=== PATIENT | female | born 1985 | race Caucasian/White ===

== ENCOUNTER 2020-05-20 03:41 | Outpatient (CLI) | payer SELFPAY ==
[2020-05-23 20:57] LABS: Patient Race White; SARS-CoV-2 RNA Undetected (Undetected); SARS-CoV-2 Specimen Source Nasal
== END 2020-05-20 04:01 ==
DX: Z11.59 Encounter for screening for other viral diseases (principal); Z20.828 Contact with and (suspected) exposure to other viral communicable diseases
CPT/HCPCS: U0003

== ENCOUNTER 2020-07-17 15:17 | Outpatient (REF) | payer BC, SELFPAY ==
[2020-07-17 15:41] LABS: Bilirubin Negative (Negative); Blood Moderate (Negative); Clarity Sl Cloudy (Clear); Glucose Negative (Negative); Ketones Negative (Negative); Leukocyte Esterase Large (Negative); Nitrite Positive (Negative); Specific Gravity 1.015 (1.005-1.025); Urobilinogen 0.2 EU/dL (Up TO 0.2)
[2020-07-17 15:50] LABS: Bacteria Many HPF (Negative); Casts Negative LPF (Negative); Crystals Negative HPF (Negative); Epithelial Cells Few HPF (Negative); Mucus Negative (Negative); RBC 20-50 HPF (0-2); WBC >50 HPF (0-5)
[2020-07-17 15:51] LABS: C & S Indicated? Yes
== END 2020-07-17 15:37 ==
LOC: LBN 15:17
DX: R30.0 Dysuria (principal)
CPT/HCPCS: 87077; 81003; 81015; 87086; 87186

== ENCOUNTER 2020-07-18 03:25 | Outpatient (CLI) | payer BC, SELFPAY ==
[2020-07-19 16:38] LABS: COVID-19 RT-PCR Result NEGATIVE (Negative)
== END 2020-07-18 03:45 ==
DX: Z20.822 Contact with and (suspected) exposure to COVID-19 (principal)
CPT/HCPCS: U0003

== ENCOUNTER 2020-07-29 03:57 | Outpatient (CLI) | payer BC, SELFPAY ==
[2020-07-29 10:06] LABS: ALT 32 U/L (14-59); AST 16 U/L (15-37); Albumin 4.1 g/dL (3.4-5.0); Alkaline Phosphatase 44 U/L (46-116); Anion Gap 7.2 mmol/L (3-11); BUN 13 mg/dL (7-18); Bilirubin, Total 0.5 mg/dL (0.2-1.0); CO2 27.8 mmol/L (21.0-32.0); CREATININE 0.72 mg/dL (0.55-1.02); Calculated LDL 87 mg/dL (<100); Chloride 104 mmol/L (98-107); Cholesterol 164 mg/dL (<200); Glucose 91 mg/dL (74-106); HDL Cholesterol 71 mg/dL (40-60); Potassium 4.1 mmol/L (3.5-5.1); Sodium 139 mmol/L (136-145); Total Protein 7.2 g/dL (6.4-8.2); Triglyceride 30 mg/dL (<150)
== END 2020-07-29 04:17 ==
DX: Z00.00 Encounter for general adult medical examination without abnormal findings (principal); Z13.220 Encounter for screening for lipoid disorders; Z13.228 Encounter for screening for other metabolic disorders
CPT/HCPCS: 36415; 80053; 80061

== ENCOUNTER 2020-08-06 03:19 | Outpatient (CLI) | payer BC, SELFPAY ==
[2020-08-07 14:04] LABS: COVID-19 RT-PCR UVMMC Result Negative (Negative)
== END 2020-08-06 03:20 | disposition home or self-care (01) ==
DX: Z20.822 Contact with and (suspected) exposure to COVID-19 (principal)
CPT/HCPCS: U0003

== ENCOUNTER 2020-08-19 09:28 | Outpatient (REF) | payer BC, SELFPAY ==
--- NOTE | 2020-08-19 07:20 | PAPFT_PTH ---
PATIENT: Edwin Iglesias LOC: [facility] U#:[id number] AGE/SX: 34/F ROOM: RE08/19/[address]: Xiomy Tyler APRN : 1985 BED: DIS: 08/19/2020 SPEC #: [id number] RECD: 08/19/20 12:42 STATUS: KOREY REJerry #: [id number] KETAN: 08/19/20 07:[address]: Xiomy Tyler DEPT: [facility] Cytology RECD BY: Jeanne Evangelista Tissues: 1 - CX/ENDOCX FOR PAP SMEARS Procedures: PAP THIN PREP/UVM Screening HPV DNA PROBE Comments: [id number] (HPV 16 & 18/45)
== END 2020-08-19 09:29 | disposition home or self-care (01) ==
LOC: LBN 09:28
DX: Z12.4 Encounter for screening for malignant neoplasm of cervix (principal); Z11.51 Encounter for screening for human papillomavirus (HPV); R87.810 Cervical high risk human papillomavirus (HPV) DNA test positive
CPT/HCPCS: 88142; 87624

== ENCOUNTER 2020-12-02 03:07 | Outpatient (CLI) | payer BC, SELFPAY ==
[2020-12-02 18:04] LABS: TSH (W/Ref FT4) 1.12 uIU/mL (0.36-3.74)
== END 2020-12-02 03:08 | disposition home or self-care (01) ==
LOC: LBO 03:07
PROVIDERS: Visit Provider Nurse Practitioner Family
DX: Z31.69 Encounter for other general counseling and advice on procreation (principal); F41.9 Anxiety disorder, unspecified
CPT/HCPCS: 36415; 84443

== ENCOUNTER 2021-06-11 21:23 | Outpatient (REF) | payer BC, SELFPAY | END 2021-06-11 21:24 | disposition home or self-care (01) | LOC: LBN 21:23 | DX: B37.3 Candidiasis of vulva and vagina (principal); N76.0 Acute vaginitis | CPT/HCPCS: 87480; 87510; 87660 ==

== ENCOUNTER 2021-06-22 09:17 | Outpatient (REF) | payer BC, SELFPAY ==
[2021-06-23 13:50] LABS: COVID-19 RT-PCR UVMMC Result Negative (Negative)
== END 2021-06-22 09:18 | disposition home or self-care (01) ==
LOC: LBN 09:17
PROVIDERS: Visit Provider Family Medicine
DX: J02.9 Acute pharyngitis, unspecified (principal); Z20.822 Contact with and (suspected) exposure to COVID-19
CPT/HCPCS: U0003; 87070

== ENCOUNTER 2021-07-07 01:07 | Outpatient (CLI) | payer BC, SELFPAY ==
[2021-07-07] MEDS: Omnipaque 350 MG/ML 50 ML BTL 10 ML IJ (13:53)
--- NOTE | 2021-07-07 13:55 | DI.RAD_ITS ---
Exam(s) RF HYSTEROSALPINGOGRAM EXAM: RF HYSTEROSALPINGOGRAM CLINICAL HISTORY: infertility,n97.9 TECHNIQUE: 2D and realtime digital imaging was performed. CONTRAST MATERIAL: Water soluble contrast was administered. COMPARISON: No exams were available for comparison FINDINGS: Fluoroscopically-guided hysterosalpingogram. The cervical opening was cannulated by fr Hamida the department of obstetric and gynecology. Then under fluoroscopic guidance, water-soluble contr ast was injected in a retrograde fashion. The uterus fills normally, with no evidence of contour abnormality, filling defect, septum, stricture , mass, or bicornuate configuration. The bilateral uterine tubes are normal and patent with normal ra pid spillage of contrast into the peritoneum. IMPRESSION: Normal hysterosalpingogram. RADIATION DOSE DELIVERED: bernice Garland=3.2 mGy
--- NOTE | 2021-07-14 12:49 | W.PROCNOTE ---
Date of service: 07/07/21 Time of Service: 11:00 Procedure Note Date of procedure: 07/07/21 Procedure: Hysterosalpingogram Surgeon/Proceduralist/Physician: Linda Kumar Procedure Diagnosis: Infertility Procedure Indications: Edwin has a history of infertility and recently had a normal sono. Her partner also did a semen analysis that was normal. She opted against bloodwork since she has very regular periods and has tracked ovulation. They are unlikely to pursue assisted reproduction but wanted an evaluation to see if there was a known cause for her infertility. Procedure Description: The patient arrived to diagnostic imaging for HSG for infertility. The procedure was explained and consent was signed. She was positioned in the dorsal lithotomy position on the table. A time out was performed. The speculum was placed in the vagina to expose the cervix. The cervix was cleansed with betadine. The catheter was inserted through the cervix into the uterine cavity. The balloon was inflated. The speculum was then removed. When the radiologist was present the patient was repositioned. The contrast was then injected while the radiologist performed fluoroscopy. The balloon was then deflated and the catheter was removed. The uterine cavity appeared normal and both tubes appeared patent with positive spill noted bilaterally. Her uterus was significantly deviated to her right side. All her questions were answered.
== END 2021-07-07 01:27 ==
PROVIDERS: Visit Provider Obstetrics & Gynecology
DX: N97.9 Female infertility, unspecified (principal); Z87.59 Personal history of other complications of pregnancy, childbirth and the puerperium
CPT/HCPCS: 58340; 74740; Q9967

== ENCOUNTER 2021-07-24 18:33 | Outpatient (REF) | payer BC, SELFPAY | END 2021-07-24 18:34 | disposition home or self-care (01) | LOC: LBN 18:33 | PROVIDERS: Visit Provider Obstetrics & Gynecology | DX: N89.8 Other specified noninflammatory disorders of vagina (principal) | CPT/HCPCS: 87480; 87510; 87660 ==

== ENCOUNTER 2021-09-17 16:07 | Outpatient (REF) | payer BC, SELFPAY ==
--- NOTE | 2021-09-17 15:30 | PAPFT_PTH ---
PATIENT: Edwin Iglesias LOC: [facility] U#:[id number] AGE/SX: 35/F ROOM: RE09/17/[address]: Lnida Kumar MD : 1985 BED: DIS: 09/17/2021 SPEC #: [id number] RECD: 09/17/21 17:26 STATUS: KOREY REJerry #: [id number] KETAN: 09/17/21 15:[address]: Linda Kumar DEPT: [facility] Cytology RECD BY: Jeanne Evangelista ENTERED: 09/17/21 17:27 SP TYPE: PAPFT OTHR DR: Xiomy Tyler APRN Tissues: 1 - CX/ENDOCX FOR PAP SMEARS Procedures: PAP THIN PREP/UVM Screening HPV DNA PROBE Comments: [id number] (CHLAMYDIA/GC)
[2021-09-18 15:15] LABS: Chlamydia Result Negative (Negative); GC Result Negative (Negative)
== END 2021-09-17 16:08 | disposition home or self-care (01) ==
LOC: LBN 16:07
PROVIDERS: Visit Provider Obstetrics & Gynecology
DX: R87.610 Atypical squamous cells of undetermined significance on cytologic smear of cervix (ASC-US) (principal); Z12.4 Encounter for screening for malignant neoplasm of cervix; Z11.51 Encounter for screening for human papillomavirus (HPV); R87.810 Cervical high risk human papillomavirus (HPV) DNA test positive; Z11.3 Encounter for screening for infections with a predominantly sexual mode of transmission
CPT/HCPCS: 87491; 87591; 88142; 87624

== ENCOUNTER 2021-10-08 02:07 | Outpatient (CLI) | payer BC, SELFPAY ==
[2021-10-08 14:32] LABS: Abs Immature Grans 0.01 10^3/uL (0.0-0.06); Absolute Basophil Count 0.03 10^3/uL (0.0-0.2); Absolute Eosinophil Count 0.06 10^3/uL (0.0-0.7); Absolute Lymphocyte Count 1.46 10^3/uL (1.2-3.4); Absolute Monocyte Count 0.37 10^3/uL (0.1-0.8); Absolute Neutrophil Count 5.48 10^3/uL (1.2-6.7); Basophils % 0.4; Eosinophils % 0.8; HCT 41.6 % (36.0-46.0); HGB 13.9 g/dL (11.2-15.7); Immature Grans % 0.1; Lymphocytes % 19.7; MCH 32.6 pg (27.0-33.0); MCHC 33.4 % (32.0-36.0); MCV 97.7 fL (80-95); MPV 10.4 fL (8.0-11.0); Nucleated RBC 0 %; Platelet Count 190 10^3/uL (130-400); RBC 4.26 10^6/uL (3.93-5.22); RDW 11.9 % (11.7-14.6); RDW-SD 42.9 fL; WBC 7.41 10^3/uL (4.4-10.8)
[2021-10-08 15:09] LABS: Hemoglobin A1C 4.7 % (<5.7)
[2021-10-08 16:16] LABS: Iron 94 ug/dL (50-170); Total Iron Binding Capacity 289 ug/dL (250-450)
[2021-10-08 16:26] LABS: Vitamin D 25 Total 30.1 ng/mL (30-100)
[2021-10-08 16:37] LABS: ALT 31 U/L (14-59); AST 21 U/L (15-37); Albumin 4.3 g/dL (3.4-5.0); Alkaline Phosphatase 60 U/L (46-116); Anion Gap 10.2 mmol/L (3-11); BUN 15 mg/dL (7-18); Bilirubin, Total 0.5 mg/dL (0.2-1.0); CO2 26.8 mmol/L (21.0-32.0); CREATININE 0.8 mg/dL (0.55-1.02); Chloride 102 mmol/L (98-107); Ferritin 49 ng/mL (8-252); Folate > 20.0 ng/mL (8.6-20.0); Glucose 82 mg/dL (74-106); Potassium 3.9 mmol/L (3.5-5.1); Sodium 139 mmol/L (136-145); T4 6.5 ug/mL (4.7-13.3); TSH 0.53 uIU/mL (0.36-3.74); Total Protein 7.6 g/dL (6.4-8.2); Vitamin B12 535 pg/mL (193-986)
[2021-10-08 17:02] LABS: FREE T4 1.07 ng/dL (0.76-1.46)
[2021-10-08 21:52] LABS: T3,Free 3.8 pg/mL (2.8-5.3)
[2021-10-08 22:06] LABS: T3, Total 132 ng/dL (97-169)
[2021-10-08 22:45] LABS: Progesterone 11.8 ng/mL (See Table)
[2021-10-08 23:23] LABS: FSH 3.7 mIU/mL (See Note); LH 0.8 mIU/mL (See Note); Thyroglobulin Antibody <15 U/mL (<=60); Thyroperoxidase Antibody <28 U/mL (<=60)
[2021-10-12 17:37] LABS: Estradiol, Mass Spectrometry 110 pg/mL; Estrone 100 pg/mL
== END 2021-10-08 02:08 | disposition home or self-care (01) ==
LOC: LBO 02:07
PROVIDERS: Visit Provider Naturopath
DX: N64.52 Nipple discharge (principal); R53.83 Other fatigue; Z31.9 Encounter for procreative management, unspecified; Z83.3 Family history of diabetes mellitus; E55.9 Vitamin D deficiency, unspecified
CPT/HCPCS: 36415; 80053; 82306; 82607; 82670; 82679; 82728; 82746; 83001; 83002; 83036; 83540; 83550; 84144; 84146; 84436; 84439; 84443; 84480; 84481; 85025; 86376; 86800

== ENCOUNTER 2022-03-25 04:00 | Outpatient (CLI) | payer BC, SELFPAY ==
[2022-03-26 15:03] LABS: Antimullerian Hormone 2.3 ng/mL (0.15-7.5)
== END 2022-03-25 04:01 | disposition home or self-care (01) ==
LOC: LBO 04:00
PROVIDERS: Visit Provider Obstetrics & Gynecology
DX: N97.8 Female infertility of other origin (principal)
CPT/HCPCS: 36415; 83520

== ENCOUNTER 2022-04-09 16:45 | Outpatient (REF) | payer BC, SELFPAY | END 2022-04-09 16:46 | disposition home or self-care (01) | LOC: LBN 16:45 | PROVIDERS: Visit Provider Obstetrics & Gynecology | DX: N89.8 Other specified noninflammatory disorders of vagina (principal) | CPT/HCPCS: 87480; 87510; 87660 ==

== ENCOUNTER 2022-07-15 04:05 | Outpatient (CLI) | payer BC, SELFPAY ==
[2022-07-15 09:43] LABS: MCH 33.5 pg (27.0-33.0); MCHC 34.2 % (32.0-36.0); MCV 98 fL (80-95); Platelet Count 211 10^3/uL (130-400); RBC 3.88 10^6/uL (3.93-5.22); RDW 11.7 % (11.7-14.6); RDW-SD 42.1 fL; WBC 3.52 10^3/uL (4.4-10.8)
[2022-07-15 09:58] LABS: TSH 0.77 uIU/mL (0.36-3.74)
[2022-07-15 09:59] LABS: HCG Quant, Pregnancy < 1 mIU/mL (1-3)
[2022-07-15 19:23] LABS: Estradiol 43 pg/mL (See Note); FSH 15.5 mIU/mL (See Note)
[2022-07-16 10:38] LABS: Hepatitis C Ab w Rflx HCV PCR Negative (Negative)
[2022-07-16 10:55] LABS: HIV-1/2 Ag & Ab Screen Negative (Negative)
[2022-07-16 11:42] LABS: Varicella IgG Antibody Positive (See Note)
[2022-07-16 11:47] LABS: Rubella IgG Ab (UVM) Positive (See Note)
[2022-07-16 12:39] LABS: Chlamydia Result Negative (Negative); GC Result Negative (Negative)
[2022-07-16 13:15] LABS: Hepatitis B Surface Ag Negative (Negative)
[2022-07-19 15:39] LABS: Syphilis Ab, TP-PA Negative (Negative)
== END 2022-07-15 04:06 | disposition home or self-care (01) ==
LOC: LBO 04:05
PROVIDERS: PCP Nurse Practitioner Family; Visit Provider Nurse Practitioner Family
DX: Z31.41 Encounter for fertility testing (principal)
CPT/HCPCS: 36415; 85027; 86780; 86787; 86803; 86850; 86900; 86901; 87340; 87389; 87491; 87591; 82670; 83001; 84443; 84702; 86762

== ENCOUNTER 2022-07-20 02:17 | Outpatient (CLI) | payer BC, SELFPAY ==
--- NOTE | 2022-07-20 08:00 | DI.US_ITS ---
Exam(s) US SONOHYSTEROGRAM EXAM: US SONOHYSTEROGRAM CLINICAL HISTORY: assess tubal patency,INFERTILITY,Z31.9. TECHNIQUE: Ultrasound was provided during sonohysterogram performed by the business objects consultant.. COMPARISON: US US TRANSVAGINAL from 07/15/2022 FINDINGS: Uterus is nongravid and anteverted. Endometrium is not thickened. It measures 3 millimeters thickne ss prior to fluid introduction into the endometrial canal. Fluid introduction to the endometrial can al did not reveal an obvious mass or polyp. Both ovaries contain follicular cysts measuring up to approximately 1 cm bilaterally. No obvious ext raovarian adnexal masses. Preliminary images do not reveal fluid in the cul-de-sac. Following introduction of fluid in the endometrial cavity there was fluid demonstrated spilling into the cul-de-sac which implies an element of tubal patency. IMPRESSION: 1. No evidence of obvious endometrial polyps 2. Tubal patency demonstrated. 3. Follicular cysts seen in both ovaries. These measure up to 1 cm size. DATA REPOSITORY:
== END 2022-07-20 02:37 ==
LOC: DI 02:17
PROVIDERS: PCP Nurse Practitioner Family; Visit Provider Obstetrics & Gynecology Gynecology
DX: Z31.69 Encounter for other general counseling and advice on procreation (principal); B97.7 Papillomavirus as the cause of diseases classified elsewhere
CPT/HCPCS: 58340; 76831

== ENCOUNTER 2022-07-22 04:06 | Outpatient (CLI) | payer BC, SELFPAY ==
[2022-07-22 16:21] LABS: Abs Immature Grans 0.01 10^3/uL (0.0-0.06); Absolute Basophil Count 0.02 10^3/uL (0.0-0.2); Absolute Eosinophil Count 0.07 10^3/uL (0.0-0.7); Absolute Lymphocyte Count 1.77 10^3/uL (1.2-3.4); Absolute Monocyte Count 0.37 10^3/uL (0.1-0.8); Absolute Neutrophil Count 3.32 10^3/uL (1.2-6.7); Basophils % 0.4; Eosinophils % 1.3; HCT 39.9 % (36.0-46.0); HGB 13.3 g/dL (11.2-15.7); Immature Grans % 0.2; Lymphocytes % 31.8; MCH 32.7 pg (27.0-33.0); MCHC 33.3 % (32.0-36.0); MCV 98 fL (80-95); Monocytes % 6.7; Neutrophils % 59.6; Platelet Count 193 10^3/uL (130-400); RBC 4.07 10^6/uL (3.93-5.22); RDW 11.8 % (11.7-14.6); RDW-SD 42.8 fL; WBC 5.56 10^3/uL (4.4-10.8)
[2022-07-22 17:00] LABS: Vitamin B12 935 pg/mL (193-986)
[2022-07-22 17:02] LABS: Folate > 20.0 ng/mL (8.6-20.0)
[2022-07-28 12:17] LABS: Methylmalonic Acid 0.09 nmol/mL (<=0.40)
== END 2022-07-22 04:07 | disposition home or self-care (01) ==
PROVIDERS: PCP Nurse Practitioner Family; Visit Provider Emergency Medicine
DX: R79.89 Other specified abnormal findings of blood chemistry (principal); F41.8 Other specified anxiety disorders; R51.9 Headache, unspecified; N97.8 Female infertility of other origin
CPT/HCPCS: 36415; 80186; 82607; 82746; 85025

== ENCOUNTER 2022-09-22 12:53 | Outpatient (REF) | payer BC, SELFPAY ==
--- NOTE | 2022-09-22 11:41 | PAPFT_PTH ---
PATIENT: Edwin Iglesias LOC: [facility] U#:[id number] AGE/SX: 36/F ROOM: RE09/22/[address]: Linda Kumar MD : 1985 BED: DIS: 09/22/2022 SPEC #: [id number] RECD: 09/22/22 13:03 STATUS: KOREY REJerry #: [id number] KETAN: 09/22/22 11:[address]: Linda Kumar DEPT: [facility] Cytology RECD BY: Jeanne Evangelista ENTERED: 09/22/22 13:03 SP TYPE: PAPFT OTHR DR: Sacha Knapp DNP Tissues: 1 - CX/ENDOCX FOR PAP SMEARS Procedures: PAP THIN PREP/UVM Screening HPV DNA PROBE Comments: [id number]
== END 2022-09-22 12:54 | disposition home or self-care (01) ==
LOC: LBN 12:53
PROVIDERS: PCP Nurse Practitioner Family; Visit Provider Obstetrics & Gynecology
DX: N94.89 Other specified conditions associated with female genital organs and menstrual cycle (principal); Z12.4 Encounter for screening for malignant neoplasm of cervix; Z11.51 Encounter for screening for human papillomavirus (HPV); R87.810 Cervical high risk human papillomavirus (HPV) DNA test positive
CPT/HCPCS: 88142; 87480; 87510; 87624; 87660

== ENCOUNTER 2022-10-01 11:59 | Outpatient (REF) | payer BC, SELFPAY ==
[2022-10-01 12:25] LABS: ESR 1 mm/hr (0-20)
[2022-10-01 12:35] LABS: Anion Gap 8.9 mmol/L (3-11); BUN 12 mg/dL (7-18); C-Reactive Protein 0.07 mg/dL (0.0-0.3); CO2 26.1 mmol/L (21.0-32.0); CREATININE 0.7 mg/dL (0.55-1.02); Chloride 103 mmol/L (98-107); Estimated GFR 114.88 (mL/min/1.73m2); Glucose 92 mg/dL (74-106); Potassium 3.8 mmol/L (3.5-5.1); Sodium 138 mmol/L (136-145)
[2022-10-01 12:40] LABS: Hemoglobin A1C 4.8 % (<5.7)
== END 2022-10-01 12:00 | disposition home or self-care (01) ==
LOC: LBN 11:59
PROVIDERS: PCP Nurse Practitioner Family; Visit Provider Nurse Practitioner Family
DX: B37.31 Acute candidiasis of vulva and vagina (principal); N90.89 Other specified noninflammatory disorders of vulva and perineum; M79.18 Myalgia, other site; M25.48 Effusion, other site; Z13.1 Encounter for screening for diabetes mellitus
CPT/HCPCS: 80048; 85652; 83036; 86140

== ENCOUNTER 2022-12-15 10:11 | Outpatient (REF) | payer BC, SELFPAY ==
[2022-12-22 08:11] LABS: Fungus Smear No Fungi Seen
== END 2022-12-15 10:12 | disposition home or self-care (01) ==
LOC: LBN 10:11
PROVIDERS: PCP Nurse Practitioner Family; Visit Provider Nurse Practitioner Women's Health
DX: N76.1 Subacute and chronic vaginitis (principal)
CPT/HCPCS: 87102; 87206

== ENCOUNTER 2022-12-27 03:18 | Outpatient (CLI) | payer BC, SELFPAY ==
[2022-12-28 18:22] LABS: Estradiol 59 pg/mL (See Note)
[2022-12-28 19:14] LABS: FSH 8.2 mIU/mL (See Note)
[2022-12-29 17:42] LABS: Antimullerian Hormone 1.6 ng/mL (0.15-7.5)
== END 2022-12-27 03:19 | disposition home or self-care (01) ==
PROVIDERS: PCP Nurse Practitioner Family; Visit Provider Obstetrics & Gynecology Obstetrics
DX: Z31.41 Encounter for fertility testing (principal)
CPT/HCPCS: 36415; 82670; 83001; 83520